=== PATIENT | female | born 1990 | race Caucasian/White ===

== ENCOUNTER 2019-12-14 08:12 | Outpatient (CLI) | payer OTHER ==
--- NOTE | 2019-12-14 08:38 | RAD ---
PA AND LATERAL VIeWS CHEST: HISTORY: Cough. FINDINGS: The cardiomediastinum is normal. The lungs are expanded and clear. The bony thorax is normal. IMPRESSION: Normal exam. POS: [facility]
== END 2019-12-14 08:13 | disposition home or self-care (01) ==
LOC: BICRAD 08:12
PROVIDERS: ATTEND Specialist
DX: R05 Cough (principal); J06.9 Acute upper respiratory infection, unspecified
CPT/HCPCS: 71046